=== PATIENT | male | born 1980 | race African-American/Black ===

== ENCOUNTER 2023-05-14 14:42 | Emergency (ER) | payer OTHER ==
[~2023-05-14] VITALS: Ht 195.6 cm; Wt 220.0 kg
[~2023-05-14 14:42] MED LIST: MUCINEX600 MG PO
[2023-05-14] MEDS ORDERED: PREDNISONE10 MG PO (16:20)
[2023-05-14] MEDS ORDERED: METHOCARBAMOL500 MG PO (16:20)
[2023-05-14] MEDS ORDERED: NAPROXEN500 MG PO (16:20)
[2023-05-14 16:32] VITALS: BP 127/66
== END 2023-05-14 16:36 | disposition home or self-care (01) | DRG 552 ==
LOC: ED 14:42
DX: M54.2 Cervicalgia (principal); M54.50 Low back pain, unspecified; M25.562 Pain in left knee; V49.40XA Driver injured in collision with unspecified motor vehicles in traffic accident, initial encounter